=== PATIENT | male | born 1995 | race Caucasian/White ===

== ENCOUNTER 2018-02-20 08:16 | Emergency (ER) | payer BC, OTHER ==
[~2018-02-20] VITALS: Ht 172.7 cm; Wt 65.4 kg
[2018-02-20 08:23] VITALS: TEMP 36.8; Ht 172.7 cm; Wt 65.4 kg
[2018-02-20] MEDS ORDERED: DiphenhydrAMINE HCL 50 MG/ML VIAL IV STA (08:42)
[2018-02-20] MEDS ORDERED: KETOROLAC TROMETHAMINE 30 MG/ML VIAL IV STA (08:42)
[2018-02-20] MEDS ORDERED: FAMOTIDINE 20MG/5ML IV PUSH IV STA (08:42)
[2018-02-20] MEDS ORDERED: RACEPINEPHRINE 2.25% NEBU SOLN 0.5 ML VIAL INH STA (08:42)
[2018-02-20] MEDS ORDERED: DEXAMETHASONE SOD INJ 4 MG/ML VIAL IV STA (08:42)
[2018-02-20] MEDS ORDERED: SODIUM CHLORIDE 0.9% 1000ML 1,000 ML IV STA (08:42)
[2018-02-20 08:59] VITALS: PULSE 92; O2SAT 97
[2018-02-20 09:13] VITALS: O2SAT 91
[2018-02-20 09:13] LABS: BASO % 0.4 %; BASO ABS # 0.02 K/uL (0-0.2); EOS % 2.9 %; EOS ABS # 0.16 K/uL (0-0.5); HEMATOCRIT 46.4 % (42-52); HEMOGLOBIN 16.6 g/dL (14.0-18.0); IG# 0.02 K/uL (0.00-0.02); LYMPH % 31.2 %; LYMPH ABS # 1.75 K/uL (1.2-3.4); MEAN CELL VOLUME 82.6 fL (80-100); MEAN CORPUSCULAR HEMOGLOBIN 29.5 pg (25-34); MEAN CORPUSCULAR HGB CONC 35.8 g/dl (32-36); MEAN PLATELET VOLUME 9.7 fL (7.4-10.4); MONO ABS # 0.45 K/uL (0.11-0.59); NEUT % 57.1 %; NEUT ABS # 3.21 K/uL (1.4-6.5); PLATELET COUNT 172 K/uL (130-400); RED CELL DISTRIBUTION WIDTH CV 12.4 % (11.5-14.5); RED CELL DISTRIBUTION WIDTH SD 37.2 fL (36.4-46.3); WHITE BLOOD COUNT 5.61 K/uL (4.8-10.8)
[2018-02-20 09:26] LABS: CALCIUM 8.6 mg/dl (8.5-10.1); CREATININE 1.05 mg/dl (0.60-1.40); POTASSIUM 3.9 mmol/L (3.5-5.1)
[2018-02-20] MEDS ORDERED: IBUP-1050 PO (10:00)
[2018-02-20] MEDS ORDERED: DEXM10TA PO (10:07)
[2018-02-20] MEDS ORDERED: ACETAMINOPHEN 500 MG TAB PO STA (12:29)
[2018-02-20] MEDS ORDERED: PRED50TA PO (13:03)
[2018-02-20 13:17] VITALS: BP 114/63; PULSE 77; O2SAT 93
--- NOTE | 2018-02-20 14:40 | EMERGENCY ROOM VISIT NOTE ---
History Report prepared by Lisa: Cande Islas Under the Supervision of: Dr. Keven Lim M.D. First contact with patient: 08:29 Chief Complaint: THROAT PAIN/INJURY Stated Complaint: TONSILS FALLEN INTO THROAT History of Present Illness The patient is a 22 year old male who presents to the Emergency Room with complaints of persistent throat pain starting 1.5 hours ago. He currently rates his discomfort as a 4/10 in severity. He reports difficulty speaking and breathing. He has had vomiting. He states that he is gagging on his tonsils. He has never experienced this before. He ate spaghetti for dinner yesterday. He also admits to alcohol use last night. Pt denies LOC, headache, fevers, chills, diaphoresis, visual changes, neck pain, chest pain, nausea, abdominal pain, back pain, melena, hematochezia, urinary symptoms, numbness, weakness, lymphadenopathy, rash, or other complaints. Source of History: patient Onset: 1.5 hours ago Position: throat Symptom Intensity: 4/10 Timing: other (persistent) Associated Symptoms: + vomiting Note: Pt reports difficulty breathing and speaking. Review of Systems See HPI for pertinent positives and negatives. A total of ten systems were reviewed and were otherwise negative. Past Medical & Surgical Medical Problems: (1) Bronchitis Family History Diabetes mellitus Hypertension Social History Smoking Status: Former Smoker Alcohol Use: occasionally Housing Status: lives alone Current/Historical Medications Scheduled Dexmethylphenidate Hcl (Focalin), 1 TAB PO QAM Ibuprofen (Advil), 200 MG PO UD Prednisone (Prednisone), 50 MG PO DAILY Allergies Coded Allergies: No Known Allergies (Unverified , 02/20/18) Physical Exam Vital Signs Date Time Temp Pulse Resp B/P (MAP) Pulse Ox O2 Delivery O2 Flow Rate FiO2 02/20/18 13:17 77 20 114/63 93 02/20/18 11:45 76 20 114/63 93 Room Air 02/20/18 10:17 73 20 124/84 97 Room Air 02/20/18 09:18 89 02/20/18 09:13 91 Room Air 02/20/18 08:59 92 16 97 Room Air 02/20/18 08:23 36.8 95 16 125/76 97 Room Air 02/20/18 08:23 97 Room Air Physical Exam GENERAL: Awake, alert, well-appearing, in no distress HENT: Normocephalic, atraumatic. Marked soft palate and uvular edema. EYES: Normal conjunctiva. Sclera non-icteric. NECK: Supple. No nuchal rigidity. FROM. No masses. RESPIRATORY: Clear to auscultation. No wheezes. No rales. Normal respiratory effort. CARDIAC: Normal rate. Normal rhythm. No murmurs. No rubs. Extremities warm and well perfused. Pulses equal. No JVD. GI: Soft, non-distended. No tenderness to palpation. No rebound or guarding. No masses. RECTAL: Deferred. MUSCULOSKELETAL: Atraumatic. Chest examination reveals no tenderness. The back is symmetrical on inspection without obvious abnormality. There is no CVA tenderness to palpation. No joint edema. LOWER EXTREMITIES: Calves are equal size bilaterally and non-tender. No edema. No discoloration. NEURO: Normal sensorium. No sensory or motor deficits noted. SKIN: No rash or jaundice noted. Medical Decision & Procedures Laboratory Results 02/20/18 08:55 Red Blood Count 5.62, Mean Corpuscular Volume 82.6, Mean Corpuscular Hemoglobin 29.5, Mean Corpuscular Hemoglobin Concent 35.8, Mean Platelet Volume 9.7, Neutrophils (%) (Auto) 57.1, Lymphocytes (%) (Auto) 31.2, Monocytes (%) (Auto) 8.0, Eosinophils (%) (Auto) 2.9, Basophils (%) (Auto) 0.4, Neutrophils # (Auto) 3.21, Lymphocytes # (Auto) 1.75, Monocytes # (Auto) 0.45, Eosinophils # (Auto) 0.16, Basophils # (Auto) 0.02 02/20/18 08:55 Test 02/20/18 08:55 White Blood Count 5.61 K/uL (4.8-10.8) Red Blood Count 5.62 M/uL (4.7-6.1) Hemoglobin 16.6 g/dL (14.0-18.0) Hematocrit 46.4 % (42-52) Mean Corpuscular Volume 82.6 fL (80-100) Mean Corpuscular Hemoglobin 29.5 pg (25-34) Mean Corpuscular Hemoglobin Concent 35.8 g/dl (32-36) Platelet Count 172 K/uL (130-400) Mean Platelet Volume 9.7 fL (7.4-10.4) Neutrophils (%) (Auto) 57.1 % Lymphocytes (%) (Auto) 31.2 % Monocytes (%) (Auto) 8.0 % Eosinophils (%) (Auto) 2.9 % Basophils (%) (Auto) 0.4 % Neutrophils # (Auto) 3.21 K/uL (1.4-6.5) Lymphocytes # (Auto) 1.75 K/uL (1.2-3.4) Monocytes # (Auto) 0.45 K/uL (0.11-0.59) Eosinophils # (Auto) 0.16 K/uL (0-0.5) Basophils # (Auto) 0.02 K/uL (0-0.2) RDW Standard Deviation 37.2 fL (36.4-46.3) RDW Coefficient of Variation 12.4 % (11.5-14.5) Immature Granulocyte % (Auto) 0.4 % Immature Granulocyte # (Auto) 0.02 K/uL (0.00-0.02) Anion Gap 9.0 mmol/L (3-11) Est Creatinine Clear Calc Drug Dose 101.2 ml/min Estimated GFR () 115.4 Estimated GFR (Non- 99.6 BUN/Creatinine Ratio 11.1 (10-20) Calcium Level 8.6 mg/dl (8.5-10.1) Laboratory results reviewed by me Medications Administered Medications (Trade) Dose Ordered Sig/Kyra Route Start Time Stop Time Status Last Admin Dose Admin Sodium Chloride 1,000 ml @ 999 mls/hr Q1H1M STAT IV 02/20/18 08:42 02/20/18 09:42 DC 02/20/18 09:06 999 MLS/HR Diphenhydramine HCl (Benadryl Inj) 50 mg NOW STAT IV 02/20/18 08:42 02/20/18 08:45 DC 02/20/18 09:05 50 MG Dexamethasone Sodium Phosphate (Decadron Inj) 10 mg NOW STAT IV 02/20/18 08:42 02/20/18 08:45 DC 02/20/18 09:05 10 MG Racepinephrine (Raccemic Epinephrine 2.25% 0.5ML Neb) 0.5 ml NOW STAT INH 02/20/18 08:42 4/8/18 08:45 DC 02/20/18 08:59 0.5 ML Ketorolac Tromethamine (Toradol Inj) 15 mg NOW STAT IV 02/20/18 08:42 02/20/18 08:45 DC 02/20/18 09:06 15 MG Famotidine (Pepcid 20mg Iv Push) 20 mg ONE STAT IV 02/20/18 08:42 02/20/18 08:45 DC 02/20/18 09:06 20 MG Acetaminophen (Tylenol Tab) 1,000 mg NOW STAT PO 02/20/18 12:29 02/20/18 12:30 DC 02/20/18 12:36 1,000 MG ED Course 0838: The patient was evaluated in room B2. A complete history and physical exam was performed. 0842: Famotidine 20 mg IV, Toradol Inj 15 mg IV, Racepinephrine 0.5 ml INH, Decadron Inj 10 mg IV, Benadryl Inj 50 mg IV, Sodium Chloride 1000 ml @ 999 mls/ hr IV. 0935: I reevaluated the patient. He is somewhat better, but still has swelling. 1107: I reevaluated the patient. He is feeling about the same. 1229: Acetaminophen 1000 mg PO. 1246: I reevaluated the patient. The swelling is better and he would like to leave. I discussed results and discharge instructions: He verbalized understanding and agreement. The patient is ready for discharge. Medical Decision Triage Nursing notes reviewed and agree them. The patient's history was concerning for fever, chills, and sore throat. Differential diagnosis: Etiologies such as allergic reaction, localized trauma, mononucleosis, streptococcal pharyngitis, peritonsillar abscess, viral syndrome, retropharyngeal abscess, tonsillitis, otitis, pneumonia, influenza, as well as others were entertained. ER treatment provided: IV Pepcid IV Toradol Racemic epi neb treatment IV Decadron IV Benadryl Cardiac monitoring On reassessment the patient felt better. Diagnostics interpreted by me: The labs revealed unremarkable CBC and chemistry panel. The patient has a negative rapid strep Imaging studies: Deferred The patient was evaluated. He has localized uvula edema. He has somewhat of a sore throat. I suspect the edema and discomfort is all related. He notes consuming a lot of alcohol last night. He has no other signs to suggest significant or systemic allergic reaction. He is unsure if he was snoring significantly due to the intoxication. The patient was treated and observed in the emergency department for well over 4-1/2 hours. He gradually got better. His edema on final reassessment was much improved. He still has some edema but the patient really desired discharge. His airway was not an issue. I discussed conservative management with him. He was given a prescription for prednisone. He will need close follow-up as an outpatient. He agreed. If he worsens in any way he will come back or seek emergency care. By the evaluation outlined above emergent etiologies such as peritonsillar abscess, retropharyngeal abscess, otitis, pneumonia, meningitis, urinary tract infection, sepsis, bacteremia, as well as others were deemed relatively unlikely. The patient was informed about the findings as listed above. All questions were answered and he was pleased with the treatment. Return instructions were outlined and the patient was discharged in stable condition. Outpatient prescription management: Prednisone Referral: The patient was referred back to his primary care physician for follow-up in 2 to 3 days for a recheck of the current condition. Medication Reconcilliation Current Medication List: was personally reviewed by me Blood Pressure Screening Patient's blood pressure: Normal blood pressure Blood pressure disposition: Did not require urgent referral Impression Primary Impression: Uvular edema Scribe Attestation The scribe's documentation has been prepared under my direction and personally reviewed by me in its entirety. I confirm that the note above accurately reflects all work, treatment, procedures, and medical decision making performed by me. Departure Information Dispostion Home / Self-Care Prescriptions Prednisone (Prednisone) 50 Mg Tab 50 MG PO DAILY for 3 Days, #3 TAB Prov: Keven Lim MD 02/20/18 Referrals No Doctor, Assigned (PCP) Forms HOME CARE DOCUMENTATION FORM, IMPORTANT VISIT INFORMATION, WORK / SCHOOL INSTRUCTIONS Patient Instructions My [facility] Additional Instructions DO NOT drive, drink alcohol, operate machinery, or perform dangerous activities today. You were given medications in the ER that can affect your ability to safely function or operate a vehicle. Prednisone 50mg: Once daily until the prescription is finished. It is best to take this earlier in the day as some patients note occasional difficulty falling asleep when taken in the late evening. Diphenhydramine(Benadryl) 25mg: use 25 to 50 mg every six hours for swelling, itching, or hives. This medication is sedating and will cause drowsiness. Avoid alcohol, operating machinery or dangerous equipment, working on ladders or roofs, DRIVING, or situations where being under the influence may be dangerous. Return to the emergency department for worsening of your rash, swelling of your face, lips, tongue, or throat, difficulty breathing, vomiting, or as needed. Follow-up with your primary care physician in 2 to 3 days for a recheck of your current condition.
--- NOTE | 2018-02-22 13:40 | Pharmacy Progress Note ---
ED Pharmacist Culture FollowUp Date of Service: Feb 22, 2018. Back-up GAS throat cx is growing RARE GAS. He had presented w/ throat pain and c/o "gagging on tonsils" with vomiting. Pt had been drinking the prior night. He was given steroids in ED and discharged w/ Rx for Prednisone - no Rx for antibiotics. Reviewed case with Dr Soriano. He recommended contacting the patient to determine if he was still symptomatic, if so give Rx for Amoxil 500mg PO BID x 10 days. I contacted the patient ([phone]) who stated he is 90% better and has no concerns at this time. Given his symptoms improved dramatically w/o abx therapy , rare colony counts on cx, Dr Soriano felt treatment was unnecessary. No abx provided.
== END 2018-02-20 13:26 | disposition home or self-care (01) ==
LOC: C.EDB 08:18
DX: R07.0 Pain in throat (principal); J39.2 Other diseases of pharynx